=== PATIENT | female | born 1995 | race Caucasian/White ===

== ENCOUNTER 2023-03-03 10:50 | Outpatient (CLI) | payer BC, SELFPAY | END 2023-03-03 10:51 | disposition home or self-care (01) | PROVIDERS: Visit Provider Physician Assistant | DX: Z01.419 Encounter for gynecological examination (general) (routine) without abnormal findings (principal); E66.9 Obesity, unspecified; Z13.6 Encounter for screening for cardiovascular disorders; Z13.1 Encounter for screening for diabetes mellitus | CPT/HCPCS: 80061; 82947 ==

== ENCOUNTER 2023-05-19 13:40 | Outpatient (CLI) | payer BC, SELFPAY ==
--- NOTE | 2023-05-19 14:00 | CRLHL7_ITS ---
For Patients: As a result of the Century Cures Act, medical imaging exams and procedure reports are released immediately into your electronic medical record. You may view this report before your referring provider. If you have questions, please contact your health care provider. INDICATION: First trimester scan, establish dates. TECHNIQUE: Real-time amaya-scale imaging of the pelvis was performed. FINDINGS: Sonographic imaging demonstrates a single living intrauterine gestation. The embryo demonstrates a regular cardiac rate measuring 171 beats per minute. The embryo`s crown-rump length measurement of 1.9 cm corresponds to a gestational age of 8 weeks 3 days with a sonographic due date of 12/26/2023 Small subchorionic hemorrhage to the right of the gestational sac measuring 2.9 x 0.6 x 1.4 centimeters Right ovarian corpus luteum cyst. There is a normal-appearing yolk sac. IMPRESSION: Early intrauterine gestation at 8 weeks 3 days with MAG of 12/26/2023. Small subchorionic hemorrhage. Dictated by Ava Jasso MD @ 05/20/2023 6:54:00 AM (Electronically Signed)
== END 2023-05-19 13:41 | disposition home or self-care (01) ==
LOC: US 13:41
PROVIDERS: Visit Provider Physician Assistant
DX: Z34.91 Encounter for supervision of normal pregnancy, unspecified, first trimester (principal); O20.9 Hemorrhage in early pregnancy, unspecified; O34.81 Maternal care for other abnormalities of pelvic organs, first trimester; N83.11 Corpus luteum cyst of right ovary; Z3A.08 8 weeks gestation of pregnancy
CPT/HCPCS: 76817; 82565; 82570; 84156; 84450; 84460; 84520; 86703; 86803; 86850; 86900; 86901; 87086; 87340

== ENCOUNTER 2023-05-19 14:52 | Outpatient (CLI) | payer BC, SELFPAY | END 2023-05-19 14:53 | disposition home or self-care (01) | PROVIDERS: Visit Provider Physician Assistant | DX: Z34.91 Encounter for supervision of normal pregnancy, unspecified, first trimester (principal); O20.9 Hemorrhage in early pregnancy, unspecified; O34.81 Maternal care for other abnormalities of pelvic organs, first trimester; N83.201 Unspecified ovarian cyst, right side; Z3A.08 8 weeks gestation of pregnancy | CPT/HCPCS: 82565; 82570; 84156; 84450; 84460; 84520; 86592; 86703; 86762; 86787; 86803; 86850; 86900; 86901; 87086; 87340 ==

== ENCOUNTER 2023-05-31 10:35 | Outpatient (CLI) | payer BC, SELFPAY | END 2023-05-31 10:36 | disposition home or self-care (01) | LOC: NFLDREF 10:36 | PROVIDERS: Visit Provider Obstetrics & Gynecology | DX: O20.9 Hemorrhage in early pregnancy, unspecified (principal); O26.891 Other specified pregnancy related conditions, first trimester; Z67.91 Unspecified blood type, Rh negative; Z3A.09 9 weeks gestation of pregnancy | CPT/HCPCS: J2791 ==

== ENCOUNTER 2023-06-03 09:50 | Outpatient (CLI) | payer BC, SELFPAY | END 2023-06-03 09:51 | disposition home or self-care (01) | PROVIDERS: Visit Provider Physician Assistant | DX: Z34.91 Encounter for supervision of normal pregnancy, unspecified, first trimester (principal); Z3A.09 9 weeks gestation of pregnancy | CPT/HCPCS: 82570; 84156 ==

== ENCOUNTER 2023-08-11 08:10 | Outpatient (CLI) | payer BC, SELFPAY ==
--- NOTE | 2023-08-11 08:15 | CRLHL7_ITS ---
For Patients: As a result of the Century Cures Act, medical imaging exams and procedure reports are released immediately into your electronic medical record. You may view this report before your referring provider. If you have questions, please contact your health care provider. INDICATION: 2nd trimester anatomical survey. TECHNIQUE: Ultrasound OB pelvis transabdominal. Real-time amaya-scale imaging of the fetus was performed as well as color Doppler and spectral Doppler analysis of the umbilical artery. COMPARISON: None. FINDINGS: There is a single living intrauterine gestation. heart activity: Regular cardiac rate of 155 beats per minute. Orientation: Cephalic. Placenta: Posterior fundal. No previa. Amniotic fluid volume: Normal. Deepest pocket 4 cm. Cervix: 4 cm. Biometry: Biparietal diameter: 20 weeks 4 days. Head circumference: 21 weeks 0 days. Abdominal circumference: 21 weeks 6 days. Femoral length: 20 weeks 4 days. The composite ultrasound gestational age is calculated at 20 weeks 5 days with an estimated sonographic due date of December 24, 2023. The weight is estimated at 408 grams, the 94th percentile. Anatomical Survey: 4 chamber heart: Visualized. Stomach: Visualized. Kidneys: Visualized. Bladder: Visualized. Spine: Visualized. Sacrum: Visualized. 4 extremities: Visualized. Cord insertion: Visualized. 3V cord: Visualized. Face: Visualized. Nose: Visualized. Lips: Visualized. Cerebellum: Visualized. Cisterna Magna: Visualized. Lateral ventricles: Visualized. IMPRESSION: 1. Single viable intrauterine . 2. No intrinsic abnormalities noted on anatomic survey. Dictated by Aden Benitez MD @ 08/12/2023 10:48:30 AM (Electronically Signed)
== END 2023-08-11 08:11 | disposition home or self-care (01) ==
LOC: US 08:11
PROVIDERS: Visit Provider Obstetrics & Gynecology
DX: Z34.92 Encounter for supervision of normal pregnancy, unspecified, second trimester (principal); Z3A.20 20 weeks gestation of pregnancy
CPT/HCPCS: 76805

== ENCOUNTER 2023-10-06 14:34 | Outpatient (CLI) | payer BC, SELFPAY | END 2023-10-06 14:35 | disposition home or self-care (01) | LOC: NFLDREF 14:35 | PROVIDERS: PCP Physician Assistant; Visit Provider Physician Assistant | DX: O26.893 Other specified pregnancy related conditions, third trimester (principal); Z3A.28 28 weeks gestation of pregnancy; Z67.11 Type A blood, Rh negative | CPT/HCPCS: 86592; 86850; J2791 ==

== ENCOUNTER 2023-11-21 11:43 | Outpatient (CLI) | payer BC, SELFPAY ==
[2023-11-21] VITALS (8 sets, daily range): BP systolic 103–118; BP diastolic 59–65; PULSE 83–97; RESP 16; O2SAT 100
[2023-11-21] MEDS: MAG HYDROX/ALUMINUM HYD/SIMETH 30 ML ORAL.SUSP PO (12:31)
--- NOTE | 2023-11-21 14:52 | PC.OBNST ---
NST Note NST Note Start: 11/21/23 11:48 Freq: ONCE Status: Active Protocol: Document 11/21/23 14:51 JOANNE (Rec: 11/21/23 14:52 JOANNE [id number]) NST Note 2 Para (# of births) 1 EDC 12/28/23 Gestational Age In Weeks & Days 34 Weeks & 5 Days Patient Presented with Complaint(s) of Pain If Pain, describe location RUQ pain, burning, headache Reactive Yes Appropriate for Gestational Age Yes RN Moy Shaffer RN Date 11/21/23 Reactive Yes Appropriate for Gestational Age Yes BERTO Beaver RN Date 11/21/23 OB NST charge Yes Complete NST Note via Write Note Yes The provider's electronic signature indicates the NST is reactive/appropriate for gestational age. *Note to provider: If an addendum is required, open the patient's chart and click on the note under the Nurse/Allied Health tab.
== END 2023-11-21 13:20 | disposition home or self-care (01) ==
LOC: OB OUT 11:43 → OB 11:43
PROVIDERS: Visit Provider Obstetrics & Gynecology
DX: O26.893 Other specified pregnancy related conditions, third trimester (principal); R51.9 Headache, unspecified; Z3A.34 34 weeks gestation of pregnancy
CPT/HCPCS: 59025; G0463; A9270

== ENCOUNTER 2023-11-30 08:18 | Outpatient (CLI) | payer BC, SELFPAY ==
[2023-12-01 10:58] LABS: Strep B DNA Probe Negative (Negative)
[2023-12-01 11:11] LABS: Strep B Susceptibility Needed? No
== END 2023-11-30 08:19 | disposition home or self-care (01) ==
LOC: FRMREF 08:18
PROVIDERS: Visit Provider Obstetrics & Gynecology
DX: Z34.93 Encounter for supervision of normal pregnancy, unspecified, third trimester (principal); Z3A.36 36 weeks gestation of pregnancy
CPT/HCPCS: 87081; 87653

== ENCOUNTER 2023-12-12 12:37 | Outpatient (CLI) | payer BC, SELFPAY ==
[2023-12-12] VITALS (11 sets, daily range): BP systolic 109–125; BP diastolic 58–64; PULSE 89–101; RESP 16; TEMP 36.7; O2SAT 98–100
[2023-12-12 13:28] LABS: Mean Corpuscular HGB Conc 33 gm/dL (32-36); Mean Corpuscular Hemoglobin 29 pg (26-34); Mean Corpuscular Volume 86 fL (80-100); Platelet Count* 307 K/uL (140-440); Red Blood Count 4.21 m/uL (4.00-5.20); White Blood Count* 10.28 K/uL (4.50-11.00)
[2023-12-12 13:29] LABS: Total Protein Urine 10 mg/dL
[2023-12-12 13:30] LABS: Creatinine Urine 24.1 mg/dL
[2023-12-12 13:33] LABS: Slide Review Reflex No
[2023-12-12 13:44] LABS: Alanine Aminotransferase* 14 U/L (4-35); Aspartate Amino Transferase* 19 U/L (12-35); Blood Urea Nitrogen* 4 mg/dL (5-24); Creatinine* 0.5 mg/dL (0.5-1.5); Estimated Glomerular Filt Rate 131 ml/min
--- NOTE | 2023-12-12 15:46 | PC.OBNST ---
NST Note NST Note Start: 12/12/23 12:50 Freq: ONCE Status: Active Protocol: Document 12/12/23 15:43 MMB (Rec: 12/12/23 15:46 MMB [id number]) NST Note 2 Para (# of births) 1 EDC 12/28/23 Gestational Age In Weeks & Days 37 Weeks & 5 Days Patient Presented with Complaint(s) of Other Other Complaints Not feeling well today and BP while working 148/92 Reactive Yes Appropriate for Gestational Age Yes RN Mariel Beaver RN Date 12/12/23 Reactive Yes Appropriate for Gestational Age Yes BERTO Alcocer RN Date 12/12/23 OB NST charge Yes Complete NST Note via Write Note Yes The provider's electronic signature indicates the NST is reactive/appropriate for gestational age. *Note to provider: If an addendum is required, open the patient's chart and click on the note under the Nurse/Allied Health tab.
== END 2023-12-12 14:55 | disposition home or self-care (01) ==
LOC: OB OUT 12:37 → OB 12:38
PROVIDERS: Visit Provider Obstetrics & Gynecology
DX: Z39.1 Encounter for care and examination of lactating mother (principal)
CPT/HCPCS: 36415; 59025; 82565; 82570; 84156; 84450; 84460; 84520; 85027; G0463

== ENCOUNTER 2023-12-13 14:53 | Outpatient (CLI) | payer BC, SELFPAY | END 2023-12-13 14:54 | disposition home or self-care (01) | LOC: NFLDREF 14:54 | PROVIDERS: Visit Provider Obstetrics & Gynecology | DX: Z87.59 Personal history of other complications of pregnancy, childbirth and the puerperium (principal) | CPT/HCPCS: 82570; 84156 ==

== ENCOUNTER 2023-12-16 08:43 | Outpatient (CLI) | payer BC, SELFPAY ==
[2023-12-16 08:57] VITALS: PULSE 93; PULSE 98; O2SAT 82; O2SAT 96
[2023-12-16 09:00] VITALS: RESP 18; TEMP 36.6
[2023-12-16 09:06] VITALS: BP 130/73; PULSE 89
[2023-12-16 10:16] LABS: Appearance Urine Clear (Clear); Bilirubin Urine Negative (Negative); Color Urine Yellow (Yellow); Glucose Urine Negative (Negative); Ketones Urine Negative (Negative)
[2023-12-16] MEDS: LACTATED RINGERS 1000 ML 1,000 ML IV (10:16)
[2023-12-16 10:17] LABS: Blood Urine Negative (Negative); Leukocyte Esterase Urine Negative (Negative); Nitrite Urine Negative (Negative); Protein Urine Negative (Negative); Specific Gravity Urine 1.015 (1.000-1.030); Urobilinogen Urine 0.2 (0.2-1.0); pH Urine 7.5 (5.0-8.5)
[2023-12-16] MEDS: ACETAMINOPHEN 500 MG TABLET 1000 MG PO (10:27)
[2023-12-16 10:30] LABS: Bacteria Urine Few; RBC Urine 0-2 (0-2); Squamous Epithelial Cell Urine Few (None-Few); WBC Urine 0-2 (0-5)
[2023-12-16 10:31] LABS: Clue Cells No Clue Cells Seen (None Seen); Trichomonas No Trichomonas Seen (None Seen); Yeast No Yeast Seen (None Seen)
--- NOTE | 2023-12-16 10:56 | P.OBLDTN_ITS ---
OB - Triage/Final Diagnosis Visit Information Time Seen by Provider: 10:56 Date Seen: 12/16/23 Date of evaluation: 12/16/23 Narrative: The patient is a [] year old [] para [] at [] weeks gestation by [], who presents with []. [] Evaluation Laboratory results: Laboratory Tests 12/16/23 Range/Units 09:56 Urine Color Yellow (Yellow) Urine Appearance Clear (Clear) Urine pH 7.5 (5.0-8.5) Ur Specific [place] 1.015 (1.000-1.030) Urine Protein Negative (Negative) Urine Glucose (UA) Negative (Negative) Urine Ketones Negative (Negative) Urine Blood Negative (Negative) Urine Nitrite Negative (Negative) Urine Bilirubin Negative (Negative) Urine Urobilinogen 0.2 (0.2-1.0) Ur Leukocyte Esterase Negative (Negative) Urine RBC 0-2 (0-2) Urine WBC 0-2 (0-5) Ur Squamous Epith Cells Few (None-Few) Urine Bacteria Few A (None) Vaginal Trichomonas No Trichomonas Seen (None Seen) Vaginal Yeast No Yeast Seen (None Seen) Vaginal Clue Cells No Clue Cells Seen (None Seen) Vital signs: Vital Signs - 24 hr 12/16/23 08:57 12/16/23 08:57 12/16/23 09:00 Temperature 97.8 F Pulse Rate Respiratory Rate 18 Blood Pressure Pulse Oximetry 82 L 96 12/16/23 09:06 Temperature Pulse Rate 89 Respiratory Rate Blood Pressure 130/73 Pulse Oximetry
[2023-12-16 11:41] VITALS: BP 122/64; PULSE 78
--- NOTE | 2023-12-16 16:47 | PC.OBNST ---
NST Note NST Note Start: 12/16/23 08:55 Freq: ONCE Status: Active Protocol: Document 12/16/23 11:54 WK (Rec: 12/16/23 16:47 WK [id number]) NST Note 2 Para (# of births) 1 EDC 12/28/23 Gestational Age In Weeks & Days 38 Weeks & 2 Days Patient Presented with Complaint(s) of Contractions/cramping Reactive Yes RN WklotterRNCt Reactive Yes RN HRileyRN Date 12/16/23 OB NST charge Yes Complete NST Note via Write Note Yes The provider's electronic signature indicates the NST is reactive/appropriate for gestational age. *Note to provider: If an addendum is required, open the patient's chart and click on the note under the Nurse/Allied Health tab.
== END 2023-12-16 12:07 | disposition home or self-care (01) ==
LOC: OB OUT 08:44 → OB 08:45
PROVIDERS: Visit Provider Obstetrics & Gynecology
DX: O47.1 False labor at or after 37 completed weeks of gestation (principal); Z3A.38 38 weeks gestation of pregnancy
CPT/HCPCS: 59025; 81001; 87086; 87210; G0463; A9270; J7120

== ENCOUNTER 2023-12-21 05:17 | Inpatient (IN) | payer BC, SELFPAY ==
[2023-12-21] VITALS (18 sets, daily range): BP systolic 85–127; BP diastolic 52–77; PULSE 52–82; RESP 16; TEMP 36.3–36.7; O2SAT 97–100; BMI 38.7
[2023-12-21 05:45] LABS: Basophils Absolute Auto 0.03 K/uL (0.00-0.30); Basophils Percent Auto 0.3 % (0.0-3.0); Eosinophils Absolute Auto 0.07 K/uL (0.00-0.50); Eosinophils Percent Auto 0.7 % (0.0-7.0); Hematocrit 34.9 % (33.0-51.0); Hemoglobin* 11.7 gm/dL (12.0-16.0); Immature Granulocytes Abs Auto 0.02 K/uL (0.00-0.30); Immature Granulocytes Pct Auto 0.2 %; Lymphocytes Absolute Auto 2.53 K/uL (0.90-2.90); Mean Corpuscular HGB Conc 34 gm/dL (32-36); Mean Corpuscular Hemoglobin 28 pg (26-34); Mean Corpuscular Volume 85 fL (80-100); Neutrophils Absolute Auto 6.39 K/uL (1.7-7.0); Neutrophils Percent Auto 65.8 % (42.0-72.0); Platelet Count* 323 K/uL (140-440); RDW Coefficient of Variation % 12.9 % (11.5-15.5); Red Blood Count 4.13 m/uL (4.00-5.20); White Blood Count* 9.72 K/uL (4.50-11.00)
[2023-12-21] MEDS: LACTATED RINGERS 1000 ML 1,000 ML 900 ML IV ×2 (05:47→14:54)
[2023-12-21 05:54] LABS: Slide Review Reflex No
[2023-12-21] MEDS: SCOPOLAMINE 1 MG/3 DAY PATCH 1 PATCH TRANSDERMA (07:20)
[2023-12-21] MEDS: CEFAZOLIN 2 GM INJ IVP (07:23)
--- NOTE | 2023-12-21 07:25 | PM.PROC ---
Procedure Note Time Seen by Provider: 08:20 Date Seen: 12/21/23 Date of procedure: 12/21/23 Will [facility] bill your pro fee for this procedure?: Yes Procedure: Preoperative diagnosis: 28-year-old 2 para 1 at 39 and 0/7 weeks admitted for a scheduled repeat low transverse section. Postoperative diagnosis: Same Procedure: Repeat low-transverse section. Anesthesia: Spinal Surgeon: Ruby Cantu MD Administrative Court Justice: RENEA Pollack Quantitative blood loss: 337 mL IVF: 2300 mL UOP: 700 mL, clear urine at the end of the procedure Drain(s): Lindsey to gravity. Specimen: None Findings: A live male infant was delivered from the direct OA position at 7:56 a.m.. Apgars were 8 at 1 min and 9 at 5 min, respectively. Infant weight: 8 lb 11 oz. Nuchal cord(s): No. The placenta was delivered spontaneously and complete at 7:58 a.m. . Amniotic fluid: Clear. Normal uterus, fallopian tubes and ovaries were noted. Other findings: Minimal adhesions Procedure: Theresa was taken to the OR where spinal anesthetic was found be adequate. A Lindsey catheter was placed. The patient was then placed in the dorsal supine position with a leftward tilt. She was then prepped and draped in a normal sterile manner. A Pfannenstiel skin incision was made and carried through sharply to the underlying layer of fascia. Fascia was incised in the midline and this incision carried laterally with Neumann scissors. The superior aspect of fascial incision was grasped with Nanette clamps, tented up, and the rectus muscles dissected off with a combination of blunt and sharp dissection. The inferior aspect of the fascial incision was not dissected off the rectus muscles. The rectus muscles were in the midline. The peritoneum was entered bluntly. This opening was extended bluntly. An Patrick-O self-retaining retractor was placed. A bladder flap was not created. Uterus was incised in a low transverse manner in the midline. This incision carried laterally with blunt pressure on the inferior and superior aspects of the uterine incision. The amniotic sac was ruptured. The 's head and body were delivered atraumatically. The infant was shown to the patient and her support person. The umbilical was clamped and cut immediately/after a 30 seconds. The was then handed to waiting nursing staff. The placenta was delivered spontaneously. The uterus was cleared of clots and debris. The uterine incision was re-approximated with the uterus in vivo. The 1st layer using 0-Vicryl in a running, locked manner. The 2nd layer using 0-Monocryl in a running, vertical, imbricating layer. Additional sutures needed for hemostasis: No. Excellent hemostasis was confirmed. The Patrick retractor was removed. The rectus muscles were not reapproximated. The rectus muscles were then closely inspected to verify hemostasis. Hemostasis was obtained with bipolar cautery. The fascia was then reapproximated using 0-Maxon loop in a running manner. The subcutaneous tissue was then irrigated with saline and hemostasis obtained with bipolar cautery. The subcutaneous tissue was reapproximated using 3-0 plain gut in a running manner. The skin was reapproximated using 4-0 Monocryl in a running subcuticular manner. Exophin skin adhesive and a Mepiplex dressing were applied. The patient tolerated this procedure well. Sponge, lap and instrument counts were correct x2 active to the procedure. Patient was taken to the recovery area in stable condition. The patient received 3 g of IV Ancef prior to skin incision.
--- NOTE | 2023-12-21 08:00 | W.ANESCHARGE ---
Anesthesia Charges Start Date/Time Anesthesia Start Date: 12/21/23 Anesthesia Start Time: 07:22 Stop Date/Time Anesthesia Stop Date: 12/21/23 Anesthesia Stop Time: 08:48
--- NOTE | 2023-12-21 08:55 | W.ANESCHARGE ---
Anesthesia Charges Start Date/Time Anesthesia Start Date: 12/21/23 Anesthesia Start Time: 07:22 Stop Date/Time Anesthesia Stop Date: 12/21/23 Anesthesia Stop Time: 08:48
--- NOTE | 2023-12-21 10:25 | W.PM.NB ---
Nerve Block Nerve Block Time Seen by Provider: 08:40 Date Seen: 12/21/23 Type of block requested by surgeon for post-operative analgesia: TAP Side: bilateral Time out performed: Yes Verification of patient name: Yes Verification of date of : Yes Site marking: site marked Name of person performing procedure: Tab Continuous monitoring Was continuous monitoring of O2 sat, B/P, cardiac rehabilitation specialist, recorded every 15 minutes?: Yes Procedure Checklist: sterile prep, needles and gloves Ultrasound guided. Images saved: Yes Medications given in 5ml increments after negative aspiration: Marcaine %: 0.25 mL: 30 Needle gauge: 20 and Exparel mL: 10 Patient tolerated procedure well: Yes Additional comments: Needle noted between internal oblique and transversus abdominus. Local spread visualized Block Charges Block Charge (with Pro Fee): TAP Bilateral Use of Ultrasound Machine for Block: Yes- US Guidance/pain block
[2023-12-21] MEDS: KETOROLAC 30 MG/ML inj IVP ×2 (14:21→19:53)
[2023-12-22 00:42] VITALS: BP 107/67; PULSE 78; RESP 16; TEMP 36.4
[2023-12-22] MEDS: KETOROLAC 30 MG/ML inj IVP ×4 (02:30→20:01)
[2023-12-22 04:43] VITALS: BP 102/52; PULSE 57; RESP 16; TEMP 36.7
[2023-12-22 06:23] LABS: Hemoglobin* 10.1 gm/dL (12.0-16.0)
--- NOTE | 2023-12-22 07:29 | P.OBPN_ITS ---
OB - PN:Subj Subjective Date Seen: 12/22/23 Patient comments OB post-: no complaints, pain well controlled, tolerating diet and flatus present [place] status: and doing well [place] feeding status: exclusively Narrative: The patient feels well.? The pain is well controlled with current medications.? She has no new complaints.? Urinary output is adequate and she is voiding w ithout difficulty.?She required a straight cath last night for inability to void but was able to void on her own early this morning. Has a good appetite, is tolerating a general diet, is passing flatus, and has not had a bowel movement.? Has scant amount of rubra lochia.? She is ambulating well.?She is and states that it is going so much better than with her first. OB - PN: Obj Exam Physical Exam: Vital signs: Temp Pulse Resp BP Pulse Ox O2 Del Method 98.1 F 57 L 16 102/52 L 100 Room Air 12/22/23 04:43 12/22/23 04:43 12/22/23 04:43 12/22/23 04:43 12/21/23 12:04 12/21/23 09:27 Narrative: GENERAL APPEARANCE:? normal affect, alert, no distress? MOOD:? appropriate? CHEST:? clear to auscultation and percussion? HEART:? regular rate and rhythm? ABDOMEN:? soft, non-tender the uterine fundus is U/2 and is appropriate for the stage of recovery. Incision dressing is clean dry and intact. Should be removed today.? EXTREMITIES:? normal and no edema? Urinary Catheter Management: Urethral: Cath placed during this visit: yes, but has since been removed by the nurse Reason for continuing: not indwelling catheter Insertion date: 12/21/23 Insertion time: 07:30 Removal date: 12/21/23 Removal time: 17:45 OB - PN: Obj Data Labs Labs: Laboratory Results - last 24 hr 12/22/23 06:15 Hgb 10.1 L OB - PN: A/P Delivery Plan day: 1 Plan: routine care Comments: Anticipate discharge home tomorrow or the following day per her preference. If she continues to do well she would prefer to discharge tomorrow.
[2023-12-22] MEDS: SODIUM CHLORIDE 0.9 % (FLUSH) 10 ML SYRINGE IVF (08:02)
[2023-12-22 08:46] VITALS: BP 125/72; PULSE 83; RESP 16; O2SAT 96
[2023-12-22] MEDS: ACETAMINOPHEN 500 MG TABLET 1000 MG PO (12:11)
[2023-12-22 15:59] VITALS: BP 115/71; PULSE 73; RESP 18; TEMP 36.8; O2SAT 97
[2023-12-22 17:51] LABS: Rapid Plasma Reagin (RPR) Non Reactive (Non Reactive)
[2023-12-22] MEDS: DOCUSATE SODIUM 100 MG CAPSULE PO (18:48)
[2023-12-23] VITALS: BP 108/64; PULSE 70; RESP 19; TEMP 36.8; O2SAT 97
[2023-12-23] MEDS: ACETAMINOPHEN 500 MG TABLET 1000 MG PO ×2 (00:10→08:54)
[2023-12-23] MEDS: IBUPROFEN 600 MG TABLET PO ×2 (03:41→09:50)
--- NOTE | 2023-12-23 07:32 | P.DS_ITS ---
DS: Providers Provider Date Seen: 12/23/23 Date of admission: 12/21/23 05:17 Primary care physician: Not a Local Provider Admitting Clinician: Ruby Cantu MD Attending Physician on discharge: Smitha Elizondo CNM DS: Diagnosis Discharge Diagnosis (1) Status post repeat low transverse section: Status: Acute (2) care and examination immediately after delivery: Status: Acute (3) Lactating mother: Status: Acute Exam Narrative: Exam Narrative: GENERAL APPEARANCE:? normal affect, alert, no distress MOOD:? appropriate CHEST:? clear to auscultation HEART:? regular rate and rhythm ABDOMEN:? soft, non-tender the uterine fundus is At Umbilicus, Midline and is appropriate for the stage of recovery. LOCHIA: Scant EXTREMITIES:? normal and trace edema Incision: Healing well, no surrounding erythema, abnormal induration or discharge Const: Vital Signs, click to edit/add: Vital Signs - 24 hr 12/22/23 08:46 12/22/23 15:59 12/23/23 00:00 Temperature 98.2 F 98.2 F Pulse Rate [Pulse Oximeter] 83 73 70 Respiratory Rate 16 18 19 Blood Pressure [Le ft Arm] 125/72 115/71 108/64 Pulse Oximetry 96 97 97 Oxygen Delivery Me thod Room Air Room Air Room Air Documenting provider has reviewed patient's vital signs: yes OB - DS: Summary Hospital Course Hospital Course: Theresa is a 28 y.o. G 2 P 2 who was admitted to [facility] for repeat c/s. ?She had a section that was uncomplicated. The patient feels well. ?The pain is well controlled with current medications. ?She has no new complaints. ?She is breast feeding and reports things are going well. the patient has done well.? Vitals have been stable.? She has remained afebrile.? Has a good appetite, is tolerating a general diet. ?She is voiding without difficulty.? She is passing gas and has not had a bowel movement.? She is ambulating and denies any dizziness.? Has small amount of rubra lochia. Problems: none plan: Discharge home with baby. Patient declines oxycodone for discharge, she has not taken any and did not with her last section. She will call if she feels she needs it. Follow up in 2 weeks and 6 weeks. , may see if needed Hgb 10.1. Peripartum Data Infant delivery method: Repeat Section Procedures: Procedures Operation Date: 12/21/23 07:15 Actual Procedure Side Surgeon p Repeat Section Not Applicable Ruby Cantu MD complications: none [place] Infant Gender: Male Discharge Plan: Home Status at Discharge Functional status at discharge: independent ambulation Overall status at discharge: patient is progressing back to baseline Time Spent with Patient Time attestation: Total time spent providing and/or coordinating discharge services: Time spent: Less than 30 minutes Discharge Plan Discharge Disposition: Home, Self-Care Date of Admission: 12/21/23 05:17 Attending Provider on Discharge: Smitha Elizondo Primary Care Provider: Provider,Not a Local Condition: Stable Anticipated Discharge Date/Time: 12/23/23 12:00 Discharge Medications: New acetaminophen 500 mg Tablet 1,000 mg PO Q6H PRN (Reason: Pain) Qty: 0 0RF docusate sodium 100 mg Capsule 100 mg PO BID PRNQty: 90 0RF ibuprofen 600 mg Tablet 600 mg PO Q6H PRN (Reason: Pain) Qty: 60 0RF Continued DHA 200 mg capsule 200 mg PO DAILY magnesium 250 mg tablet 500 mg PO QDAY omeprazole 40 mg capsule,delayed release(DR/EC) 40 mg PO QDAY Qty: 90 0RF famotidine 20 mg tablet 20 mg PO QHS Qty: 30 2RF [id number] [Fioricet] 50-300-40 mg capsule 1 cap PO Q6H PRN (Reason: pain) Qty: 30 0RF Discharge Orders: Discharge Order (Routine); Ordered 12/23/23 Ordered By: Smitha Elizondo Patient Education: OB Over the Counter Medication Information, OB Vaginal/Breast Feeding Activity Level: Activity as Tolerated Discharge Diet: Regular Follow Up [facility] Inst[facility]
[2023-12-23 08:25] VITALS: BP 104/65; PULSE 66; RESP 16; TEMP 36.7; O2SAT 97
--- NOTE | 2023-12-28 08:03 | W.PM.H&PU ---
History & Physical Update History & Physical Update H&P Reviewed and patient assessed: No changes noted
== END 2023-12-23 10:40 | disposition home or self-care (01) | DRG 540 ==
PROVIDERS: Admitting Provider Obstetrics & Gynecology; Visit Provider Obstetrics & Gynecology
PROC: 10D00Z1 Extraction of Products of Conception, Low, Open Approach (ICD-10-PCS; CPT 59514; principal; 2023-12-21 07:15)
DX: O34.211 Maternal care for low transverse scar from previous cesarean delivery (principal); Z3A.39 39 weeks gestation of pregnancy; Z37.0 Single live birth; O99.214 Obesity complicating childbirth; O26.893 Other specified pregnancy related conditions, third trimester; Z67.11 Type A blood, Rh negative; G89.18 Other acute postprocedural pain
CPT/HCPCS: 01961; 36415; 51798; 64488; 76942; 85018; 85025; 86592; 86850; 86870; 86880; 86900; 86901; A9270; C9290; J0665; J0690; J1100; J1885; J2274; J2371; J2405; J2590; J7120

== ENCOUNTER 2023-12-29 08:27 | Outpatient (CLI) | payer BC, SELFPAY | END 2023-12-29 08:28 | disposition home or self-care (01) | LOC: NFLDREF 08:28 | PROVIDERS: Visit Provider Physician Assistant | DX: N39.0 Urinary tract infection, site not specified (principal) | CPT/HCPCS: 87086 ==

== ENCOUNTER 2024-05-13 08:33 | Outpatient (CLI) | payer BC, SELFPAY | END 2024-05-13 08:34 | disposition home or self-care (01) | LOC: NFLDREF 05-14 07:00 | PROVIDERS: Visit Provider Nurse Practitioner | DX: R30.0 Dysuria (principal); N30.00 Acute cystitis without hematuria; B37.9 Candidiasis, unspecified; T36.95XA Adverse effect of unspecified systemic antibiotic, initial encounter | CPT/HCPCS: 87086 ==

== ENCOUNTER 2025-07-18 10:13 | Outpatient (CLI) | payer BC, SELFPAY ==
[2025-07-18 15:29] LABS: Bacterial Vaginosis* Negative (Negative); Candida glab/krus NOT DETECTED (No Detected)
== END 2025-07-18 10:14 | disposition home or self-care (01) ==
LOC: FRMREF 10:14
PROVIDERS: PCP Nurse Practitioner Family; Visit Provider Registered Nurse
DX: N89.8 Other specified noninflammatory disorders of vagina (principal)
CPT/HCPCS: 81513; 87481; 87661